=== PATIENT | male | born 2000 | race Caucasian/White ===

== ENCOUNTER 2021-05-31 14:53 | Emergency (ER) | payer BC ==
[~2021-05-31] VITALS: Ht 167.6 cm; Wt 59.1 kg
[2021-05-31 15:11] VITALS: BP 122/70
--- NOTE | 2021-05-31 16:16 | PHYS DOC ---
Past History Past Surgical History: No Surgical History Alcohol Use: None General Adult EDM: Chief Complaint: SKIN RASH/ABSCESS HPI: HPI: 21-year-old male presents with rash on his bilateral soles of his feet and 2 spots in his oropharynx. The patient was sent here from urgent care because they were concerned this could be a more serious complication. The patient had a fever of 101 on Wednesday. The next day, he started to have a couple of spots on his feet. These multiplied on Wednesday. They are painful to the touch but have not spread past the soles of his feet. The patient was unaware he had 2 lesions in his mouth. Patient does not have a fever anymore. He tested negative for COVID-19. He has no other complaints at this time. Review of Systems: Review of Systems: Constitutional: Denies fever or chills Eyes: Denies change in visual acuity HENT: Denies nasal congestion or sore throat Respiratory: Denies cough or shortness of breath Cardiovascular: Denies chest pain or edema GI: Denies abdominal pain, nausea, vomiting, bloody stools or diarrhea : Denies dysuria Musculoskeletal: Denies back pain or joint pain Integument: Rash on feet Neurologic: Denies headache, focal weakness or sensory changes Endocrine: Denies polyuria or polydipsia Lymphatic: Denies swollen glands Psychiatric: Denies depression or anxiety Allergies: Allergies: Allergies Coded Allergies Type Severity Reaction Last Updated Verified No Known Drug Allergies 05/31/21 No Physical Exam: PE: Constitutional: Well developed, well nourished, no acute distress, non-toxic appearance. [] HENT: Normocephalic, atraumatic, bilateral external ears normal, oropharynx with 2 small or subtle lesions on the right side, nose normal. [] Eyes: PERRLA, EOMI, conjunctiva normal, no discharge. [] Neck: Normal range of motion, no tenderness, supple, no stridor. [] Cardiovascular:Heart rate regular rhythm, no murmur [] Lungs & Thorax: Bilateral breath sounds clear to auscultation [] Abdomen: Bowel sounds normal, soft, no tenderness, no masses, no pulsatile masses. [] Skin: Multiple papules on the plantar surface of the bilateral feet, some with slight bruising. [] Back: No tenderness, no CVA tenderness. [] Extremities: No tenderness, no cyanosis, no clubbing, ROM intact, no edema. [] Neurologic: Alert and oriented X 3, normal motor function, normal sensory function, no focal deficits noted. [] Psychologic: Affect normal, judgement normal, mood normal. [] Current Patient Data: Vital Signs: Vital Signs Date Time Temp Pulse Resp B/P (MAP) Pulse Ox O2 Delivery O2 Flow Rate FiO2 05/31/21 15:11 98.0 73 18 122/70 (87) 100 EKG: EKG: [] Radiology/Procedures: Radiology/Procedures: [] Heart Score: C/O Chest Pain: N/A Risk Factors: Risk Factors: DM, Current or recent (<one month) smoker, HTN, HLP, family history of CAD, obesity. Risk Scores: Score 0 - 3: 2.5% MACE over next 6 weeks - Discharge Home Score 4 - 6: 20.3% MACE over next 6 weeks - Admit for Clinical Observation Score 7 - 10: 72.7% MACE over next 6 weeks - Early Invasive Strategies Course & Med Decision Making: Course & Med Decision Making Pertinent Labs and Imaging studies reviewed. (See chart for details) The patient's history and presentation is consistent with itba-pwej-kty-mouth disease. Given that the patient does not have any other symptoms and no fever at this time, a more serious condition is unlikely. I have advised supportive care such as ibuprofen and Tylenol. He is stable for discharge at this time. If his condition worsens in any way he will follow-up or return to the emergency room. [] Dragon Disclaimer: Dragon Disclaimer: This electronic medical record was generated, in whole or in part, using a voice recognition dictation system. Departure Departure: Impression: Primary Impression: Hand, foot and mouth disease Disposition: HOME / SELF CARE / HOMELESS Condition: STABLE Referrals: TERENCE RUSSELL MD (PCP) Patient Instructions: Hand, Foot, and Mouth Disease SAROJ HACKETT DO May 31, 2021 16:16
== END 2021-05-31 16:22 | disposition home or self-care (01) ==
LOC: ER 14:53
DX: B08.4 Enteroviral vesicular stomatitis with exanthem (principal)
CPT/HCPCS: 99282-25